=== PATIENT | male | born 1965 | race Caucasian/White ===

== ENCOUNTER 2019-08-24 08:21 | Day surgery (SDC) | payer OTHER ==
[~2019-08-24] VITALS: Ht 182.9 cm; Wt 89.8 kg
[2019-08-24] VITALS (7 sets, daily range): BP systolic 132–148; BP diastolic 79–99
[~2019-08-24 08:21] MED LIST: cefazolin/dext.iso 2gm/100ml 100 ML IV ONE; famotidine 10mg tablet PO ONE; ringers solution, lacted 1,000 ML IV SCH
[2019-08-24] MEDS ORDERED: HYDR25TA4 PO (09:23)
[2019-08-24] MEDS ORDERED: PROP60CA37 PO (09:24)
[2019-08-24] MEDS ORDERED: ROPIVAcaine 0.5% (5mg/ml) 30ml vial ONE (10:49)
[2019-08-24] MEDS ORDERED: sevoflurane 250ml liquid IH ONE (11:38)
[2019-08-24] MEDS ORDERED: fentaNYL /PF 50mcg/ml 5ml ampule ONE (11:47)
[2019-08-24] MEDS ORDERED: midazolam 2 mg/2 ml injection ONE (11:47)
[2019-08-24] MEDS ORDERED: ringers solution, lacted 1,000 ML IV SCH (12:04)
[2019-08-24] MEDS ORDERED: ondansetron/PF 4mg/2ml inj IV PRN (12:05)
[2019-08-24] MEDS ORDERED: proCHLORperazine 10 MG/2 ml inj IV PRN (12:05)
[2019-08-24] MEDS ORDERED: meperidine/PF 25mg/ml syringe IV PRN ×3 (12:05)
[2019-08-24] MEDS ORDERED: morphine 4 MG/ML inj SYRINge IV PRN ×2 (12:05)
[2019-08-24] MEDS ORDERED: ondansetron/PF 4mg/2ml inj ONE (12:08)
[2019-08-24] MEDS ORDERED: dexamethasone sod phosphate 4mg/ml inj. ONE (12:08)
[2019-08-24] MEDS ORDERED: LIDOcaine 2% (20mg/ml) 5ml vial ONE (12:08)
[2019-08-24] MEDS ORDERED: propofol inj 20 ML IV ONE (12:08)
[2019-08-24] MEDS ORDERED: glycopyrrolate 0.2mg/ml inj ONE (12:39)
[2019-08-24] MEDS ORDERED: meperidine/PF 50mg/ml syringe ONE (13:25)
[2019-08-24] MEDS ORDERED: tetracaine 1% (10mg/ml) pres. free inj. ONE (13:35)
--- NOTE | 2019-08-24 13:45 | NUR ---
Received from OR via , accompanied by Anesthesiologist AMANDA and report given by Anesthesiolgist. RIGHT KNEE DRESSING WITH KEYONNA BRACE 0-40 DEGREES LOCKED. DRESSING CDI. V/S WNL, GUARDS AT BEDSIDE, NEUROVASCULA RCHECKS INTACT. 20G PIV RUE.
--- NOTE | 2019-08-24 14:35 | NUR ---
RIGHT KNEE DRESSING WITH KEYONNA BRACE 0-40 DEGREES LOCKED. CRUTCHES GIVEN TO GUARDS DRESSING CDI. V/S WNL, GUARDS AT BEDSIDE, NEUROVASCULAR CHECKS INTACT. 20G PIV RUE D/C. I HAVE REVIEWED D/C INSTRUCTIONS WITH PATIENT AND GUARDS THEY HAVE VERBALIZED UNDERSTANDING.PATIENT WAS D/C BACK TO [facility] WITH ALL BELONGINGS AND GUARDS GAVE TRANSPORT BACK TO [facility].
== END 2019-08-24 14:35 | disposition home or self-care (01) ==
LOC: PAS 08:21 → EEVIPCON 11:30 → PAS 14:35
PROVIDERS: ATTEND Orthopaedic Surgery
DX: S83.281A Other tear of lateral meniscus, current injury, right knee, initial encounter (principal); I10 Essential (primary) hypertension; Z87.891 Personal history of nicotine dependence; Z98.890 Other specified postprocedural states; Z86.19 Personal history of other infectious and parasitic diseases; Z79.899 Other long term (current) drug therapy; X58.XXXA Exposure to other specified factors, initial encounter; Y93.89 Activity, other specified; Y92.89 Other specified places as the place of occurrence of the external cause; Y99.8 Other external cause status
CPT/HCPCS: 29882; 82948; 93005; C1713; J1100; J2001; J2175; J2250; J2405; J2704; J3010; J7120; L1832; A4215; A4618; A6449; A7000; J2795; J3490